=== PATIENT | female | born 1980 | race Caucasian/White ===

== ENCOUNTER 2016-10-29 11:52 | Day surgery (SDC) | payer SELFPAY ==
[~2016-10-29] VITALS: Ht 162.6 cm; Wt 91.0 kg
--- NOTE | 2016-10-29 08:06 | PCM.HPANE ---
Patient Data Surgeon Admitting Provider: Attending Provider:Frida Mancilla MD Primary Care Physician:Elvia Hernandez MD Other Provider:Katlin Arvizuingham Anesthesia Reason for Visit Abnormal Uterine Bleeding Ht/WT & BMI Height (Feet): 5 Height (Inches): 4 Weight (Kilograms): 91.70 Body Mass Index 34.00 Allergies Coded Allergies: No Known Allergies (Verified , 10/29/16) Past Anesthesia History Anesthesia History: Denies:: Abnormal Airway, Anesthesia Reactions, Difficult Intubation, Fam Anesthesia Reaction, Fam Malignant Hypertherm, Malignant Hyperthermia Diabetes History Hx Diabetes?: No MRSA MRSA: No Medications Hypertension Medication: No Home Meds Incl Beta Tung: No No Active Prescriptions or Reported Meds History History of ENT Problems?: No HEENT History: Denies:: Abnormal Airway Cataracts Difficult Intubation Dysphagia Glaucoma Hearing Problem Sinus Problem TMJ Denture Type: None Teeth Condition: Within Normal Limits Hx of Heart Problems?: No Cardiovascular History: Denies:: AICD Abdominal Aortic Aneurism Atrial Fibrillation Cardiac Surgery Chest Pain Congestive Heart Failure Coronary Artery Disease Edema Heart Murmur Hypertension Irregular Heartbeat Pacemaker Peripheral Vascular Rheumatic Fever Thrombophlebitis Valvular Heart Disease Hx of Respiratory Problem?: No Respiratory History: Denies:: Asthma COPD Chest Surgery Cough Dyspnea Emphysema Hemoptysis Pneumonia Pulmonary Embolism Tuberculosis Hx Neurologic Problems?: No Hx of GI Problems?: No Hx of Problems?: No Female Hx: Denies:: Problems with Breasts? Skin History: Denies:: History Skin Disorders? Pressure Ulcers Hx Musculoskeletal Problems?: No Musculoskeletal History: Positive for:: Back Injury (Hurts to sit for long period) Denies:: Degenerative Joint Fibromyalgia Joint Replacement Myasthenia Gravis Osteoarthritis Rheumatoid Arthritis Systemic Lupus Hx Surgeries?: Yes () Other History: Positive for:: Hospitalization (2005) Denies:: Cancer Endocrine Disease Thyroid Disease History Blood Transfusions: Positive for:: Accept Blood Products? Blood Transfusions Denies:: Blood Transfuse Reaction Hx Diabetes: No Hx Alcohol Use: NoHx Substance Use: No Stop/Bang S-Snoring: Do You Snore Loudly: Yes T-Tired: feel tired, fatigued: No O-Obsered: Observed not breath: No P-Blood Pressure: treated: No B- Body Mass Index > 35 kg/m2: Yes A- Age over 50: No N- Neck Large Circumference: Yes G- Gender Male: No ROGERS Total Score: 3 ROGERS Risk Assessment: High Risk, =/>3 Yes ROGERS Category 4 OutPt Procedure: Yes Risk Assessment Category Category 1A: Patient has history of documented sleep apnea, and HAS NOT received any narcotic, sedative or anesthesia administration during this stay. Category 1B: Patient has history of documented sleep apnea, and HAS received any narcotic , sedative or anesthesia administration during this stay Category 2: Patient has SUSPECTED Obstructive Sleep Apnea, and HAS received any narcotic , sedative or anesthesia administration during this stay. Category 3: Patient has SUSPECTED Obstructive Sleep Apnea and HAS NOT received narcotic, sedative or anesthesia administration during this stay. Category 4: Outpatient in Procedural Areas with known sleep apnea or who screen positive for High Risk via the STOP/BANG questionnaire. Exam Exam General Appearance: Alert, Oriented X3, Cooperative, No Acute Distress HEENT/AIRWAY: MP 2 Lungs: Clear to Auscultation, Normal Air Movement Heart: Exam Unremarkable, Regular Rate/Rhythm, No Murmurs/Rubs/Gallops Plan Impression Patient chart reviewed, patient interviewed and anesthestic plan with risks, benefits, and alternatives discussed, and informed consent obtained. ASA Physical Status: ASA2 Mod Systemic Disease Anesthetic Plan: GA Bene/Risks/Altern/Consents: Yes HP Complete Prior to Induction: Yes Guille Miranda MD Oct 29, 2016 08:06
[~2016-10-29 11:52] MED LIST: Dexamethasone 4 mg/mL Inj IVPUSH PRN; EPHEDrine Sulfate 50 mg/mL Inj IVPUSH PRN; HYDROmorphone 1 mg/mL Inj IVPUSH PRN; Lactated Ringer's 1,000 ML IV SCH; Lactated Ringer's 500 ML IV PRN; MetoCLOpramide 5 mg/mL 2 mL Inj IVPUSH PRN; Ondansetron 2 mg/mL 2 mL Inj IVPUSH PRN; Phenylephrine 10,000 mCg/mL Inj IVPUSH PRN; fentaNYL-PF 50 mCg/mL 2 mL Inj IVPUSH PRN
[2016-10-29] MEDS ORDERED: fentaNYL-PF 50 mCg/mL 2 mL Inj ONE (11:53)
[2016-10-29] MEDS ORDERED: EPHEDrine/NS 5 mg/mL 5 mL Syringe ONE (11:53)
[2016-10-29] MEDS ORDERED: Ondansetron 2 mg/mL 2 mL Inj ONE (11:53)
[2016-10-29] MEDS ORDERED: Dexamethasone 4 mg/mL Inj ONE (11:53)
[2016-10-29] MEDS ORDERED: Propofol 10,000 mCg/mL 20 mL Inj ONE (11:53)
[2016-10-29] MEDS: Lactated Ringer's 1,000 ML IV SCH ×2 (11:58→13:39)
[2016-10-29 12:29] VITALS: BP 124/66; PULSE 50; RESP 18; O2SAT 100
[2016-10-29] MEDS ORDERED: Lactated Ringer's 500 ML IV PRN (13:33)
[2016-10-29] MEDS ORDERED: Lactated Ringer's 1,000 ML IV SCH (13:33)
--- NOTE | 2016-10-29 13:33 | PCM.HPANE ---
Patient Data Surgeon Admitting Provider: Attending Provider:Frida Mancilla MD Primary Care Physician:Elvia Hernandez MD Other Provider:Katlin Arvizuingham Anesthesia Reason for Visit Abnormal Uterine Bleeding Ht/WT & BMI Height (Feet): 5 Height (Inches): 4 Weight (Kilograms): 91.0 Body Mass Index 34.00 Allergies Coded Allergies: No Known Allergies (Verified , 10/29/16) Past Anesthesia History Anesthesia History: Denies:: Abnormal Airway, Anesthesia Reactions, Difficult Intubation, Fam Anesthesia Reaction, Fam Malignant Hypertherm, Malignant Hyperthermia Diabetes History Hx Diabetes?: No MRSA MRSA: No Medications Hypertension Medication: No Home Meds Incl Beta Tung: No No Active Prescriptions or Reported Meds History History of ENT Problems?: No HEENT History: Denies:: Abnormal Airway Cataracts Difficult Intubation Dysphagia Glaucoma Hearing Problem Sinus Problem TMJ Denture Type: None Teeth Condition: Within Normal Limits Hx of Heart Problems?: No Cardiovascular History: Denies:: AICD Abdominal Aortic Aneurism Atrial Fibrillation Cardiac Surgery Chest Pain Congestive Heart Failure Coronary Artery Disease Edema Heart Murmur Hypertension Irregular Heartbeat Pacemaker Peripheral Vascular Rheumatic Fever Thrombophlebitis Valvular Heart Disease Hx of Respiratory Problem?: No Respiratory History: Denies:: Asthma COPD Chest Surgery Cough Dyspnea Emphysema Hemoptysis Pneumonia Pulmonary Embolism Tuberculosis Hx Neurologic Problems?: No Hx of GI Problems?: No Hx of Problems?: No Female Hx: Denies:: Problems with Breasts? Skin History: Denies:: History Skin Disorders? Pressure Ulcers Hx Musculoskeletal Problems?: No Musculoskeletal History: Positive for:: Back Injury (Hurts to sit for long period) Denies:: Degenerative Joint Fibromyalgia Joint Replacement Myasthenia Gravis Osteoarthritis Rheumatoid Arthritis Systemic Lupus Hx Surgeries?: Yes () Other History: Positive for:: Hospitalization (2005) Denies:: Cancer Endocrine Disease Thyroid Disease History Blood Transfusions: Positive for:: Accept Blood Products? Blood Transfusions Denies:: Blood Transfuse Reaction Hx Diabetes: No Hx Alcohol Use: NoHx Substance Use: No Stop/Bang S-Snoring: Do You Snore Loudly: Yes T-Tired: feel tired, fatigued: No O-Obsered: Observed not breath: No P-Blood Pressure: treated: No B- Body Mass Index > 35 kg/m2: Yes A- Age over 50: No N- Neck Large Circumference: Yes G- Gender Male: No ROGERS Total Score: 3 ROGERS Risk Assessment: High Risk, =/>3 Yes ROGERS Category 4 OutPt Procedure: Yes Risk Assessment Category Category 1A: Patient has history of documented sleep apnea, and HAS NOT received any narcotic, sedative or anesthesia administration during this stay. Category 1B: Patient has history of documented sleep apnea, and HAS received any narcotic , sedative or anesthesia administration during this stay Category 2: Patient has SUSPECTED Obstructive Sleep Apnea, and HAS received any narcotic , sedative or anesthesia administration during this stay. Category 3: Patient has SUSPECTED Obstructive Sleep Apnea and HAS NOT received narcotic, sedative or anesthesia administration during this stay. Category 4: Outpatient in Procedural Areas with known sleep apnea or who screen positive for High Risk via the STOP/BANG questionnaire. High Risk, =/>3 Yes Exam Exam Vital Signs Vital Signs Date Time Temp Pulse Resp B/P Pulse Ox O2 Delivery O2 Flow Rate FiO2 10/29/16 12:29 36.6 50 18 124/66 100 General Appearance: Alert, Oriented X3, Cooperative, No Acute Distress HEENT/AIRWAY: MP 2 Lungs: Clear to Auscultation, Normal Air Movement Heart: Exam Unremarkable, Regular Rate/Rhythm, No Murmurs/Rubs/Gallops Meds/Labs/Diagnostics Admission Meds Current Medications Lactated Ringer's (Lr) 1,000 ml @ 120 mls/hr [id number] IV Last administered on t 11:58; Start 10/29/16 at 05:00; Stop 10/29/16 at 13:19 Plan Impression Patient chart reviewed, patient interviewed and anesthestic plan with risks, benefits, and alternatives discussed, and informed consent obtained. NPO per Anesth. Guidelines: Yes ASA Physical Status: ASA2 Mod Systemic Disease Anesthetic Plan: GA Bene/Risks/Altern/Consents: Yes HP Complete Prior to Induction: Yes Other Discussed GA with patient through a mig tig welder. All questions were answered and she agrees to proceed. Carlos Mendoza MD Oct 29, 2016 12:45
[2016-10-29] MEDS ORDERED: Phenylephrine 10,000 mCg/mL Inj IVPUSH PRN (13:35)
[2016-10-29] MEDS ORDERED: MetoCLOpramide 5 mg/mL 2 mL Inj IVPUSH PRN (13:35)
[2016-10-29] MEDS ORDERED: EPHEDrine Sulfate 50 mg/mL Inj IVPUSH PRN (13:35)
[2016-10-29] MEDS ORDERED: fentaNYL-PF 50 mCg/mL 2 mL Inj IVPUSH PRN (13:35)
[2016-10-29] MEDS ORDERED: Dexamethasone 4 mg/mL Inj IVPUSH PRN (13:35)
[2016-10-29] MEDS ORDERED: HYDROmorphone 1 mg/mL Inj IVPUSH PRN (13:35)
[2016-10-29] MEDS ORDERED: Ondansetron 2 mg/mL 2 mL Inj IVPUSH PRN (13:35)
[2016-10-29 14:22] VITALS: BP 111/61; PULSE 54; RESP 14; O2SAT 100
[2016-10-29 14:25] VITALS: BP 105/58; PULSE 54; RESP 16; O2SAT 100
--- NOTE | 2016-10-29 14:27 | PCM.ANEP1 ---
Post Anesthesia PACU Phase 1 Assessment Vital Signs Vital Signs Date Time Temp Pulse Resp B/P Pulse Ox O2 Delivery O2 Flow Rate FiO2 10/29/16 12:29 36.6 50 18 124/66 100 Anesthetic Administered: GA Level of Alertness: Sleepy, easy to arouse GOODWIN's with Equal Strength: Yes Pain: No Nausea or Vomiting: No CV Function & Hydration Stable: Yes Airway Device: Oxygen Delivery: Simple Mask Lungs: Clear to Auscultation, Normal Air Movement Dermatome Level: Full Sensation PACU Phase 2 Assessment Complications: No Follow up Care: N/A Patient Instructions Provided: N/A Carlos Mendoza MD Oct 29, 2016 14:27
[2016-10-29 14:30] VITALS: BP 116/62; PULSE 66; RESP 15; O2SAT 100
--- NOTE | 2016-10-29 14:31 | PCM.DIOB ---
Obstetrical Disch Instruction Date of Service: Oct 29, 2016 Dates of Hospitalization Date of Hospital Admission Providers Admitting Physician: Primary Care Physician: Elvia Hernandez MD Attending Physician: Frida Mancilla MD Discharge Diagnosis Discharge Diagnosis Abnormal uterine bleeding Post Operative diagnosis Endometrial Polyps Problems: Diet Discharge Diet: No restrictions Activity Discharge Activity-General: Balance rest and activity, No lifting >15 pounds for 2 weeks, Other (Pelvic rest for 3 weeks, no sex, tampon nor douching ) Dressing and Incisional Care Hygiene: May shower Follow Up Plan Follow-up Provider (F9): Frida Mancilla MD Follow-up appointment: Weeks (Two) Call your provider for: Fever or Chills, Shortness of breath, Heavy vaginal bleeding, Heavy bleeding, Excessive constipation, Vaginal discomfort Frida Mancilla MD Oct 29, 2016 14:31
[2016-10-29] MEDS ORDERED: oxyCODONE-Acetamin 5-325 mg Tablet PO PRN (14:35)
[2016-10-29] MEDS ORDERED: IBUP-1827 PO (14:36)
[2016-10-29] MEDS ORDERED: OXYC-466 PO (14:36)
[2016-10-29 15:07] VITALS: BP 128/94; PULSE 55; RESP 16; O2SAT 100
--- NOTE | 2016-10-29 15:38 | OP ---
[address] [address] OPERATIVE REPORT PATIENT: CRISTOFER GALLEGO : 1980 MR#: [id number] ADMIT: 10/29/2016 JOB ID: [id number] DATE OF SURGERY: 10/29/2016 PREOPERATIVE DIAGNOSIS(ES): Abnormal uterine bleeding. POSTOPERATIVE DIAGNOSIS(ES): Abnormal uterine bleeding. Bleeding endometrial polyps. SURGEON: Frida Mancilla MD GUEST SERVICES COORDINATOR: Marychuy Morfin MD PROCEDURE: Hysteroscopy, dilatation, and curettage. COMPLICATIONS: None. IMPLANTS: None. ESTIMATED BLOOD LOSS: 50 mL. INTRAVENOUS FLUIDS: 700 mL. URINE OUTPUT: 20 mL straight cath prior to the procedure. ANESTHESIA: General. FINDINGS: Exam under anesthesia revealed a 12 week size uterus, slightly irregular in shape, globular fundus. Adnexa were not palpable secondary to body habitus. Uterus was sounded to 10 cm. Hysteroscopic finding: Multiple endometrial polyps throughout the entire uterine cavity, but mostly in the lower part. The fundus was clear. Both ostia were visualized without difficulty. Total fluid deficit at the end of the procedure was 283 mL. INDICATION: This is a 36-year-old two, para two with history of abnormal uterine bleeding. Menses monthly lasted for 2-3 weeks at a time. She had tubal ligation. She desires and she will be seen [facility] in near future. PROCEDURE: After informed consent was obtained, the patient was taken to the operation room. She was placed under general anesthesia. She was prepped and draped in the usual sterile fashion for pelvic procedure. Exam under anesthesia was performed with findings as mentioned above. Heavy weighted speculum was placed in the posterior vaginal vault. Anterior retractor was placed with good visualization of the cervix. The anterior lip of the cervix was grasped with single-tooth tenaculum. The cervix was sampled with a curette for the endometrial curetting part of the procedure, then the cervix was dilated to accommodate a size 6.25 mm hysteroscope. The uterus was sounded to 10 cm. Hysteroscope was introduced, with the findings as mentioned above. Then, the hysteroscope was removed. Endometrial curetting was performed throughout the entire endometrial cavity to obtain gritty sensation throughout the endometrial cavity. Post curettage the hysteroscope was reintroduced. Some remnants of the polyps noted in the anterior uterine wall. The hysteroscope was removed and further curettage was performed at the anterior uterine wall. At this time the procedure was complete. All instruments were removed from the vagina. The cervix was hemostatic. All instrument, needle, and sponge counts were correct x2. The patient tolerated the procedure well and was transferred to the recovery room in stable condition. IFrida MD, was present and scrubbed for entire procedure. SPECIMENS: Endometrial curettings and endocervical curettings.
--- NOTE | 2016-11-02 11:47 | PATH ---
SURGICAL PATHOLOGY Attending Physician:Frida Mancilla CASE STATUS: Signed Out PATIENT NAME: CRISTOFER GALLEGO PID: [id number] : 1980 DATE COLLECTED:10/29/2016 00:00 SPECIMEN: 1: Endocervix, Curettage 2: Endometrium, Curettage CLINICAL HISTORY: ABNORMAL UTERINE BLEED 1). ENDOCERVICAL CURETTINGS 2). ENDOMETRIAL CURETTINGS WITH POLYPS FINAL DIAGNOSIS: 1.ENDOCERVICAL CURETTINGS: FRAGMENTS OF ENDOCERVICAL EPITHELIUM, NEGATIVE FOR ATYPIA. 2.ENDOMETRIAL CURETTINGS: SECRETORY ENDOMETRIUM WITH DISORDERED MATURATION AND CHANGES OF GLANDULAR AND STROMAL BREAKDOWN. SCATTERED FRAGMENTS CONSISTENT WITH PORTIONS OF BENIGN ENDOMETRIAL POLYP. NEGATIVE FOR ATYPIA AND MALIGNANCY. ICD10 N93.8 GROSS DESCRIPTION: 1. Received in formalin, labeled with the patient's name and "endocervical curettings" are multiple fragments of dark koroma mucoid tissue measuring 1.0 x 0.5 x 0.1 cm in aggregate. The fragments are totally submitted in cassette 1A. 2. Received in formalin, labeled with the patient's name and "endometrial curetting polyps" are multiple fragments of dark koroma mucoid tissue measuring 5.0 x 3.0 x 1.0 cm in aggregate. The fragments are totally submitted in cassette 2A and 2B. ([id number]) MICRO DESCRIPTION: See diagnosis. ICD-9 CODES: CPT CODES: 1: 27301 2: 90074 Electronically Signed Out Chuck Sinclair MD [facility] Pathology [facility] [address], [place] [address] Technical component performed at [facility], [facility] [address], [place], [address]
== END 2016-10-29 23:59 | disposition home or self-care (01) ==
LOC: SAS 11:52
PROVIDERS: ATTEND Obstetrics & Gynecology
DX: N93.9 Abnormal uterine and vaginal bleeding, unspecified (principal)
CPT/HCPCS: 58558; J1100; J1885; J2250; J2405; J3010; J7120